=== PATIENT | male | born 1960 | race Caucasian/White ===

== ENCOUNTER 2016-11-28 10:28 | Emergency (ER) | payer OTHER ==
[~2016-11-28] VITALS: Ht 175.3 cm; Wt 96.6 kg
[~2016-11-28 10:28] MED LIST: GLIP-26 PO; INSU100V8 SQ; LISI-334 PO; PRAV40TA2 PO; SERT50TA8 PO; SITA1TAB11 PO
[2016-11-28 10:40] VITALS: BP 116/66
--- NOTE | 2016-11-28 11:02 | PHYS DOC ---
General Chief Complaint: NAUSEA/VOMITING/DIARRHEA Stated Complaint: NAUSEA/VOMITING Time Seen by MD: 10:29 Source: patient, old records Exam Limitations: no limitations Problems: History of Present Illness Initial Comments Patient is a 56-year-old male who comes to the ED complaining of GI symptoms. Patient states that for the past 3-4 weeks he's had intermittent bouts of diarrhea. Diarrhea is described as loose watery stools, cramping prior to bowel movement with relief upon bowel movement. Increased gas production, feeling of bloating no focal abdominal pain fever chills sweats no chest pain and trouble breathing. He says this morning he had several episodes of emesis he states are due to feeling so badly with the diarrhea. He denies bad food exposure or recent travel overseas he is visiting here locally for business as he is from [place]. He is diabetic he states he's been consistent with diet and meds and prior to coming to the ED his glucose was 82. In the emergency department he denies any complaints he has no nausea or vomiting he denies any abdominal discomfort. He feels symptoms are related to diverticulitis, he's had several exacerbations in the past in addition to recent colonoscopy confirming the diagnosis. He denies seeing any blood in his stools or emesis. Timing/Duration: changing over time, other Severity: moderate Modifying Factors: worse with eating Associated Symptoms: nausea/vomiting, other Allergies: Coded Allergies: prochlorperazine edisylate (Verified Allergy, Swelling, 06/18/13) prochlorperazine maleate (Verified Allergy, Swelling, 06/18/13) Past Medical History Medical History: other (depression, diabetes, diverticulitis, hyperlipidemia, hypertension) Surgical History: noncontributory Social History Smoker: non-smoker Alcohol: none Drugs: none Review of Systems Constitutional: denies chills, denies diaphoresis, denies fever, denies malaise , denies weakness Cardiovascular: denies chest pain, denies edema, denies palpitations, denies syncope Gastrointestinal: see HPI Genitourinary: denies dysuria, denies frequency, denies hematuria Musculoskeletal: denies back pain, denies joint swelling, denies neck pain Psychiatric/Neurological: denies headache, denies numbness, denies paresthesia , denies tingling, denies weakness Physical Exam General Appearance: WD/WN, no apparent distress Eyes: bilateral eye normal inspection, bilateral eye PERRL, bilateral eye EOMI Ear, Nose, Throat: hearing grossly normal, normal ENT inspection, normal pharynx Neck: full range of motion, supple Respiratory: normal breath sounds, no respiratory distress Cardiovascular: normal peripheral pulses, regular rate, rhythm Gastrointestinal: soft (nondistended bowel sounds normal no focal tenderness. 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 The patient would rather forego testing for now with them. Treatment for diverticulitis. He says he will return if symptoms fail to improve or worsen and expresses agreement and understanding with the treatment plan. Departure Time of Disposition: 10:58 Disposition: 01 HOME, SELF-CARE Diagnosis: abdominal discomfort, h/o diverticulitis, DM Condition: STABLE Patient Instructions: Diverticulitis, [id number] Additional Instructions: As discussed you have chosen to leave the emergency department without evaluation in favor of conservative treatment. Return to the ED if you change your mind and want us to work your symptoms up further or if symptoms change. Please review the patient education handout given to you by the ED staff. Aggressive hydration with Gatorade or water. Clear liquids today, increase slowly to bland diet tomorrow as tolerated. [id number] probiotics or cultured dairy (danimals, gogurt) to replace normal gut judy and aid in symptom control. Prescriptions: Cipro, Flagyl, Zofran ODT 4 mg, Fountain 5 mg quantity 20 Take medications with food to avoid nausea and vomiting. No alcohol while taking Flagyl to avoid adverse GI symptoms. Follow-up with her doctor in 5-7 days for recheck. Return to the ED with new or changing symptoms YOLIE PENNINGTON DO Nov 28, 2016 11:02
[2016-11-28] MEDS ORDERED: CIPROFLOXACIN HCL 500 MG TABLET PO ONE (11:15)
[2016-11-28] MEDS ORDERED: metroNIDAZOLE 500 MG TABLET PO ONE (11:15)
[2016-11-28] MEDS ORDERED: ONDANSETRON ODT 4 MG TAB.RAPDIS PO ONE (11:15)
== END 2016-11-28 11:16 | disposition home or self-care (01) ==
LOC: ER 10:28
DX: R10.9 Unspecified abdominal pain (principal); R19.7 Diarrhea, unspecified; R11.2 Nausea with vomiting, unspecified; K57.92 Diverticulitis of intestine, part unspecified, without perforation or abscess without bleeding; E11.9 Type 2 diabetes mellitus without complications; E78.5 Hyperlipidemia, unspecified; I10 Essential (primary) hypertension; Z88.8 Allergy status to other drugs, medicaments and biological substances
CPT/HCPCS: 99284; Q0162

== ENCOUNTER 2016-12-04 18:18 | Inpatient (IN) | payer OTHER ==
[~2016-12-04] VITALS: Ht 175.3 cm; Wt 92.6 kg
--- NOTE | 2016-12-04 18:36 | ED.ADGEN ---
Past History Past Medical History: Depression, Diverticulitis, Diabetes, High Cholesterol, Hypertension Past Surgical History: Other Smoking: Non-smoker Alcohol Use: None Drug Use: None Adult General HPI HPI Patient is a [56] year old [male] who presents with 7 day hx of n//v/d. he was seen 1 week ago and treated for diverticulitis. he has had diverticulitis before in 1999. he had colonoscopy then that showed minimal diverticula. he has been taking cipro and flagyl. he is still nauseated with abdominal pain. diarrhea has improved. no fever. no bloody stools. he is diabetic and has been reducing his insulin since he has not been eating as much Review of Systems Review of Systems Constitutional: Denies fever or chills [] Eyes: Denies change in visual acuity, redness, or eye pain [] HENT: Denies nasal congestion or sore throat [] Respiratory: Denies cough or shortness of breath [] Cardiovascular: No additional information not addressed in HPI [] GI: periumbilical abdominal pain, nausea, vomiting, No bloody stools, improving diarrhea [] : Denies dysuria or hematuria [] Musculoskeletal: Denies back pain or joint pain [] Integument: Denies rash or skin lesions [] Neurologic: Denies headache, focal weakness or sensory changes [] Endocrine: Denies polyuria or polydipsia [] Current Medications Current Medications Current Medications Medications (Trade) Dose Ordered Sig/Cam Start Time Stop Time Status Last Admin Dose Admin Iohexol (Omnipaque 300 Mg/ml) 75 ml 1X ONCE 12/04/16 19:30 12/04/16 19:31 DC 12/04/16 20:14 75 ML Ondansetron HCl (Zofran) 4 mg 1X ONCE 12/04/16 20:45 12/04/16 20:46 DC 12/04/16 20:45 4 MG Sodium Chloride 1,000 ml @ 1,000 mls/hr 1X ONCE 12/04/16 19:00 12/04/16 19:59 DC 12/04/16 19:00 1,000 MLS/HR Allergies Allergies Allergies Coded Allergies Type Severity Reaction Last Updated Verified prochlorperazine edisylate Allergy Swelling 06/18/13 Yes prochlorperazine maleate Allergy Swelling 06/18/13 Yes Physical Exam Physical Exam Constitutional: Well developed, well nourished, no acute distress, non-toxic appearance. [] HENT: Normocephalic, atraumatic, bilateral external ears normal, oropharynx moist, no oral exudates, nose normal. [] Eyes: PERRLA, EOMI, conjunctiva normal, no discharge. [] Neck: Normal range of motion, no tenderness, supple, no stridor. [] Cardiovascular:Heart rate regular rhythm, no murmur [] Lungs & Thorax: Bilateral breath sounds clear to auscultation [] Abdomen: Bowel sounds normal, soft, tender periumbilical. minimal right and left lower quadrant. no masses, no pulsatile masses. [] Skin: Warm, dry, no erythema, no rash. [] Back: No tenderness, no CVA tenderness. [] Extremities: No tenderness, no cyanosis, no clubbing, ROM intact, no edema. [] Neurologic: Alert and oriented X 3, normal motor function, normal sensory function, no focal deficits noted. [] Psychologic: Affect normal, judgement normal, mood normal. [] Current Patient Data Vital Signs Vital Signs Date Time Temp Pulse Resp B/P (MAP) Pulse Ox O2 Delivery O2 Flow Rate FiO2 12/04/16 20:28 78 20 134/71 (92) 97 Room Air 12/04/16 18:30 98.2 Lab Results Laboratory Tests Test 12/04/16 19:18 12/04/16 20:40 White Blood Count 12.0 x10^3/uL (4.0-11.0) H Red Blood Count 4.44 x10^6/uL (4.30-5.70) Hemoglobin 12.8 g/dL (13.0-17.5) L Hematocrit 38.2 % (39.0-53.0) L Mean Corpuscular Volume 86 fL (79-100) Mean Corpuscular Hemoglobin 29 pg (25-35) Mean Corpuscular Hemoglobin Concent 34 g/dL (31-37) Red Cell Distribution Width 14.0 % (11.5-14.5) Platelet Count 203 x10^3/uL (140-400) Neutrophils (%) (Auto) 77 % (31-73) H Lymphocytes (%) (Auto) 16 % (24-48) L Monocytes (%) (Auto) 6 % (0-9) Eosinophils (%) (Auto) 1 % (0-3) Basophils (%) (Auto) 0 % (0-3) Neutrophils # (Auto) 9.2 x10^3uL (1.8-7.7) H Lymphocytes # (Auto) 1.9 x10^3/uL (1.0-4.8) Monocytes # (Auto) 0.7 x10^3/uL (0.0-1.1) Eosinophils # (Auto) 0.2 x10^3/uL (0.0-0.7) Basophils # (Auto) 0.0 x10^3/uL (0.0-0.2) Sodium Level 135 mmol/L (136-145) L Potassium Level 5.8 mmol/L (3.5-5.1) H 5.7 mmol/L (3.5-5.1) H Chloride Level 106 mmol/L (98-107) Carbon Dioxide Level 23 mmol/L (21-32) Anion Gap 6 (6-14) Blood Urea Nitrogen 36 mg/dL (8-26) H Creatinine 1.3 mg/dL (0.7-1.3) Estimated GFR (Cockcroft-Gault) 56.7 BUN/Creatinine Ratio 28 (6-20) H Glucose Level 202 mg/dL (70-99) H Lactic Acid Level 0.8 mmol/L (0.4-2.0) Calcium Level 8.9 mg/dL (8.5-10.1) Total Bilirubin 0.4 mg/dL (0.2-1.0) Aspartate Amino Transferase (AST) 42 U/L (15-37) H Alanine Aminotransferase (ALT) 54 U/L (16-63) Alkaline Phosphatase 103 U/L (46-116) Total Protein 7.6 g/dL (6.4-8.2) Albumin 3.7 g/dL (3.4-5.0) Albumin/Globulin Ratio 0.9 (1.0-1.7) L Lipase 184 U/L (73-393) EKG EKG HR 76. time 2133. no peaked Twaves. no stemi. normal QRS[] Radiology/Procedures Radiology/Procedures [] Course & Med Decision Making Course & Med Decision Making Pertinent Labs and Imaging studies reviewed. (See chart for details) pt was found to be hyperkalemic. meds given. he also has esophagitis on CT so protonix given. CT showed colitis, Dr. Gibbs requested zosyn. Dr. Gibbs accepted admission Final Impression Final Impression colitis, hyperkalemia, IDDM[] Problems: Dragon Disclaimer Dragon Disclaimer This electronic medical record was generated, in whole or in part, using a voice recognition dictation system. TIFFANIE PRETTY MD Dec 04, 2016 18:36
[2016-12-04] MEDS ORDERED: IV NORMAL SALINE 1,000ML 1,000 ML IV ONE ×2 (19:00→22:00)
[2016-12-04] MEDS ORDERED: ONDANSETRON PF 4 MG/2 ML VIAL. IV ONE ×2 (19:00→20:45)
[2016-12-04] MEDS ORDERED: IOHEXOL 300 MG/ML 75 ML VIAL. IV ONE (19:30)
[2016-12-04 19:40] LABS: BASO % 0 % (0-3); EOS # 0.2 x10^3/uL (0.0-0.7); EOS % 1 % (0-3); HEMATOCRIT 38.2 % (39.0-53.0); HEMOGLOBIN 12.8 g/dL (13.0-17.5); LYMPH # 1.9 x10^3/uL (1.0-4.8); LYMPH % 16 % (24-48); MEAN CORPUSCULAR HEMOGLOBIN 29 pg (25-35); MEAN CORPUSCULAR HGB CONC 34 g/dL (31-37); MEAN CORPUSCULAR VOLUME 86 fL (79-100); MONO # 0.7 x10^3/uL (0.0-1.1); MONO % 6 % (0-9); NEUT # 9.2 x10^3uL (1.8-7.7); NEUT % 77 % (31-73); PLATELET COUNT 203 x10^3/uL (140-400); RED BLOOD COUNT 4.44 x10^6/uL (4.30-5.70)
[2016-12-04 19:57] LABS: ALBUMIN 3.7 g/dL (3.4-5.0); ALBUMIN/GLOBULIN RATIO 0.9 (1.0-1.7); CALCIUM 8.9 mg/dL (8.5-10.1); CREATININE 1.3 mg/dL (0.7-1.3); GFR 56.7; POTASSIUM 5.8 mmol/L (3.5-5.1); TOTAL BILIRUBIN 0.4 mg/dL (0.2-1.0); TOTAL PROTEIN 7.6 g/dL (6.4-8.2)
--- NOTE | 2016-12-04 20:49 | RAD ---
CT abdomen and pelvis with contrast TECHNIQUE: Helical CT imaging of the abdomen and pelvis were acquired with 75 mL Omnipaque 300 intravenous contrast. HISTORY: Ground-level abdominal pain, nausea and vomiting, leukocytosis. Abdomen findings: Moderate L2 vertebral compression fracture and mild L1 vertebral body compression fracture features of which are typical of chronic fractures. Distal esophageal wall appears mildly thickened. Liver, gallbladder, pancreas, spleen, adrenal glands and left kidney unremarkable. Subcentimeter indeterminate hypodense lesion right renal lower pole axial image 39. No abdominal fluid or adenopathy. The cecum and ascending colon is mildly thick walled. The appendix is normal without evidence of appendicitis diameter 5 mm without inflammation. No bowel obstruction. No abdominal fluid or adenopathy. Lung bases unremarkable. Pelvis findings: Bladder, prostate, rectum and bones are unremarkable. The sigmoid colon appears mildly thick-walled and there is mild pericolonic stranding. The left transverse colon and descending colon are collapsed and contains a thick-walled as well. IMPRESSION: 1. Probable low-grade colitis with colonic luminal collapse and wall thickening and subtle areas of pericolic edema. 2. The appendix is negative. 3. Chronic lumbar compression fractures. 4. Mild distal esophageal wall thickening could be indicative of esophagitis or neoplasia. Exposure: One or more of the following individualized dose reduction techniques were utilized for this examination: 1. Automated exposure control 2. Adjustment of the mA and/or kV according to patient size 3. Use of iterative reconstruction technique Electronically signed by: Mikhail Arriola MD (12/04/2016 8:45 PM)
[2016-12-04] MEDS ORDERED: INSULIN REGULAR 100 UNIT/ML 10ML VIAL. IV ONE (22:00)
[2016-12-04] MEDS ORDERED: DEXTROSE 50% 25 GM / 50ML DISP.SYRIN. IV PRN (22:00)
[2016-12-04] MEDS ORDERED: SODIUM POLYSTYRENE SULFONATE 15 GM/60 ML ORAL.SUSP. PO ONE (22:00)
[2016-12-04] MEDS ORDERED: SODIUM BICARB ADULT 8.4% 50 MEQ/50 ML DISP.SYRIN. IV ONE (22:00)
[2016-12-04] MEDS ORDERED: DEXTROSE 50% 25 GM / 50ML DISP.SYRIN. IV ONE (22:00)
[2016-12-04] MEDS ORDERED: CALCIUM GLUCONATE 1,000 MG/10 ML VIAL IV ONE ×3 (22:00)
[2016-12-04] MEDS: IV NORMAL SALINE 1,000ML 1,000 ML IV SCH (22:18)
[2016-12-04] MEDS ORDERED: PANTOPRAZOLE 40 MG TABLET. PO ONE (22:30)
[2016-12-04 22:50] VITALS: BP 145/72
[2016-12-04] MEDS ORDERED: MELO7.5T29 PO (22:51)
--- NOTE | 2016-12-04 23:36 | NUR ---
The patient, LIANNA SANCHEZ, 56 y/o, M admitted by VIVIAN SIMON MD, was given written information regarding hospital policies, unit procedures and contact persons. Patient was recently treated for diverticulitis, he has been having a lot of diarrhea and abdominal pain since then. He is currently living in [place] but has been up here visiting his family. Valuables were checked and left with patient.
[2016-12-04] MEDS ORDERED: PIPERACILLIN/TAZOBACTAM 3.375 GM VIAL IV ONE (23:43)
[2016-12-04] MEDS ORDERED: IV NORMAL SALINE 50ML 50 ML ONE (23:44)
[2016-12-04] MEDS: PIPERACILLIN/TAZOBACTAM 3.375 GM in IV NORMAL SALINE 50ML 50 ML IV SCH (23:52)
[2016-12-05] MEDS: IV NORMAL SALINE 1,000ML 1,000 ML IV SCH ×2 (04:31→13:10)
[2016-12-05] MEDS ORDERED: PIPERACILLIN/TAZOBACTAM 3.375 GM VIAL IV ONE (05:06)
[2016-12-05] MEDS ORDERED: IV NORMAL SALINE 50ML 50 ML ONE (05:06)
[2016-12-05] MEDS: PIPERACILLIN/TAZOBACTAM 3.375 GM in IV NORMAL SALINE 50ML 50 ML IV SCH ×3 (05:13→18:45)
[2016-12-05] MEDS ORDERED: CONTRAST GIVEN MC PRN (05:45)
[2016-12-05 05:56] LABS: BASO # 0.1 x10^3/uL (0.0-0.2); BASO % 1 % (0-3); EOS # 0.2 x10^3/uL (0.0-0.7); EOS % 2 % (0-3); HEMATOCRIT 33.7 % (39.0-53.0); HEMOGLOBIN 11.5 g/dL (13.0-17.5); LYMPH # 2.4 x10^3/uL (1.0-4.8); LYMPH % 25 % (24-48); MEAN CORPUSCULAR HEMOGLOBIN 30 pg (25-35); MEAN CORPUSCULAR HGB CONC 34 g/dL (31-37); MEAN CORPUSCULAR VOLUME 87 fL (79-100); MONO # 0.6 x10^3/uL (0.0-1.1); MONO % 6 % (0-9); NEUT # 6.6 x10^3uL (1.8-7.7); NEUT % 67 % (31-73); PLATELET COUNT 181 x10^3/uL (140-400); RED BLOOD COUNT 3.89 x10^6/uL (4.30-5.70); RED CELL DISTRIBUTION WIDTH 13.9 % (11.5-14.5); WHITE BLOOD COUNT 9.8 x10^3/uL (4.0-11.0)
[2016-12-05 06:05] LABS: CALCIUM 8.3 mg/dL (8.5-10.1); CREATININE 1.2 mg/dL (0.7-1.3); GFR 62.2
[2016-12-05 06:38] VITALS: BP 143/72
[2016-12-05 06:39] VITALS: BP 143/72
--- NOTE | 2016-12-05 06:53 | EKG ---
[address] [address] Test Date: 2016-12-04 Test Time: 21:33:46 Pat Name: LIANNA SANCHEZ Department: Room: 115 A Gender: M Setter Up: ROHIT : 1960 Requested By: TIFFANIE PRETTY Order Number: [id number] Reading MD: Catrachito Donahue Measurements Intervals Reader Rate: 76 P: 45 NM: 180 QRS: 15 QRSD: 78 T: 48 QT: 350 QTc: 393 Interpretive Statements SINUS RHYTHM Electronically Signed On 12-06-2016 9:17:06 CDT by Catrachito Donahue
[2016-12-05] MEDS: MORPHINE SULFATE 4 MG/ML DISP.SYRIN. IV PRN ×3 (07:37→21:26)
[2016-12-05] MEDS: ONDANSETRON PF 4 MG/2 ML VIAL. IV PRN ×2 (07:37→13:10)
[2016-12-05] MEDS ORDERED: metFORMIN 500 MG TABLET PO SCH (08:00)
[2016-12-05] MEDS: LINAGLIPTIN 5 MG TABLET PO SCH (08:16)
[2016-12-05] MEDS: LISINOPRIL 20 MG TABLET PO SCH (08:16)
[2016-12-05] MEDS: PANTOPRAZOLE IV PUSH 40 MG VIAL. IVP SCH (11:40)
[2016-12-05 11:42] VITALS: BP 115/61
[2016-12-05] MEDS: SUCRALFATE 1 GM/10 ML ORAL.SUSP. PO SCH ×3 (11:46→21:04)
--- NOTE | 2016-12-05 12:59 | ACF ---
Admission Criteria Forms GASTROENTEROLOGY [facility]G Clinical Indications for Admission to Inpatient Care (Place 'X' for any and all applicable criteria): Hospital admission is needed for appropriate care of the patient because of ANY ONE of the following: [ ]I. Hemoperitoneum(7) [ ]II. Ascites requiring acute treatment indicated by ANY ONE of the following( 8)(9): [ ]a) Hemodynamic instability remaining after emergency or observation level care (as appropriate) [ ]b) Peritoneal signs present (eg, abdominal rigidity, rebound tenderness, absent bowel sounds) [ ]c) Tachypnea, Hypoxemia, or other respiratory symptoms remain after emergency or observation level care (as appropriate) [ ]d) Suspected infected ascites as indicated by ANY ONE of the following: [ ]i) Temperature greater than 100 degrees F (37.8 degrees C) [ ]ii) Abdominal pain or tenderness not relieved by paracentesis [ ]iii) Systemic signs of infection (eg, elevated WBC count, fever) [ ]iv) Ascitic fluid analysis consistent with infection ( eg, elevated WBC count): [ ]v) Vital sign abnormality [ ]III. Suspected acute intra-abdominal process indicated by ANY ONE of the following(1)(2)(3)(4)(5): [ ]a) Hemodynamic instability [ ]b) Peritoneal signs present (eg, abdominal rigidity, rebound tenderness, absent bowel sounds) [ ]c) Bowel obstruction suspected (eg, severe vomiting, abdominal distension) [ ]d) Suspected mesenteric ischemia or ischemic colitis(6) [ ]e) Other signs or symptoms of acute abdominal disease (eg, severe pain, free air): [ ]IV. Severe liver disease indicated by ANY ONE of the following(8)(9)(10)(11)( 12)(13)(14): [ ]a) Acute hepatitis (eg, transaminase level greater than 1000 IU/L) [ ]b) Acute elevation of prothrombin time to more than 50% above normal or INR greater than 1.5 [ ]c) Bilirubin greater than 20 mg/dL (342 micromoles/L) (15) [ ]d) New-onset or worsening hepatic encephalopathy [ ]e) Acute liver necrosis [ ]f) Vomiting or dehydration that is severe of persistent [ ]g) Hemodynamic instability due to liver disease [ ]h) Acute renal failure [ ]i) Hepatic abscess [ ]j) Dehydration that is severe or persistent [ ]k) Hepatic hydrothorax(21) [ ]l) Other indications of severe liver disease (eg, persistent fever , ingestion of hepatotoxin) [X]V. Severe diarrhea indicated by ANY ONE of the following(17)(18)(19)(20)(21)( 22)(23): [ ]a) High fever or other high-risk infection situation [ ]b) Intractable bloody diarrhea (eg, more than 6 bloody stools per day) [ ]c) Suspected Clostridium difficile-associated diarrhea(24) [ ]d) Change in mental status that persists after emergency or observation level care (as appropriate) [ ]e) Severe dehydration (eg, greater than 9% loss of body weight in children) [ ]f) Inability to maintain hydration [ ]g) Peritoneal signs present (eg, abdominal rigidity, rebound tenderness, absent bowel sounds) [ ]h) Abdominal ischemia suspected(6) [ ]i) Hemodynamic instability that persists after emergency or observation level care (as appropriate) [X]j) Severe electrolyte abnormalities requiring inpatient care [ ]k) Acute renal failure [ ]. Suspected toxic megacolon(5)(6) [ ]VII.Severe dysphagia indicated by ANY ONE of the following(25)(26): [ ]a) Suspected esophageal perforation or fistula(27) [ ]b) Suspected cause that requires inpatient care (eg, caustic ingestion, severe esophagitis) (28) [ ]c) Severe dehydration (eg, greater than 9% loss of body weight in children) [ ]d) Inability to manage secretions or maintain hydration [ ]e) Hemodynamic instability that persists after emergency or observation level care (as appropriate) [ ]f) Severe electrolyte abnormalities requiring inpatient care [ ]g) Acute renal failure [ ]VIII.Vomiting and ANY ONE of the following (29)(30)(31)(32): [ ]a) High fever or other high-risk infection situation [ ]b) Change in mental status that persists after emergency or observation level care (as appropriate) [ ]c) Severe dehydration (e.g., greater than 9% loss of body weight in children) [ ]d) Peritoneal signs present (e.g., abdominal rigidity, rebound tenderness, absent bowel sounds) [ ]e) Hemodynamic instability that persists after emergency or observation level care (as appropriate) [ ]f) Severe electrolyte abnormalities requiring inpatient care [ ]g) Acute renal failure [ ]h) Bowel obstruction suspected (e.g., severe vomiting, abdominal distension) [ ]i) Vomiting that is severe or persistent after medical treatment [ ]IX. Significant dehydration indicated by ANY ONE of the following(23)(24)(25) [ ]a) Clinical findings of severe dehydration indicated by ANY ONE of the following: [ ]i) Acute loss of weight from baseline (5% of body weight in adults, 9% in pediatric patients) [ ]ii) Hemodynamic instability [ ]iii) Acute renal failure [ ]iv) Serum sodium greater than 150 mEq/L (mmol/L) [ ]b) Dehydration that is persistent indicated by ALL of the following: [ ]i) Oral rehydration therapy not tolerated or insufficient to adequately correct dehydration [ ]ii) Appropriate intravenous treatment (eg, fluids) does not readily correct dehydration hours of (ie, after 12 to 24 of treatment) [ ]X. Gastroparesis and ANY ONE of the following(37)(38)(39): [ ]a) Dehydration that is severe or persistent [ ]b) Severe electrolyte abnormalities requiring inpatient care [ ]c) Acute renal failure [ ]d) Vomiting that is severe or persistent [ ]XI. Complications of transplanted liver indicated by ANY ONE of the following (40)(41): [ ]a) Acute graft rejection requiring inpatient management (eg, intravenous immunosuppression)(42) [ ]b) Failure of transplanted liver as indicated by ANY ONE of the following: [ ]i) Acute hepatitis (eg, transaminase level greater than 1000 International Units per liter (IU/L)) [ ]ii) Acute elevation of prothrombin time to more than 50% above baseline or INR greater than 1.5 [ ]iii) Bilirubin greater than 20 mg/dL (342 micromoles/L) [ ]iv) New-onset or worsening hepatic encephalopathy [ ]v) Acute elevation of serum ammonia level (eg, greater than 210 mcg/dL (150 micromoles/L)) [ ]vi) Acute liver necrosis [ ]c) Infection requiring inpatient management (eg, Hemodynamic instability, need for intravenous antimicrobial treatment)(43)(44)(45)(46)(47)(48)(49)(50) [ ]d) Other complication of transplanted liver (eg, thrombosis, autoimmune hepatitis, variceal bleeding) requiring inpatient management(51)(52) [ ]XII Complications of transplanted pancreas indicated by ANY ONE of the following(53): [ ]a) Acute graft rejection requiring inpatient management (eg, intravenous immunosuppression)(42)(54) [ ]b) Failure of transplanted pancreas as indicated by ANY ONE of the following: [ ]i) Serum amylase greater than 3 times the upper limit of normal or baseline [ ]ii) Serum lipase greater than 3 times the upper limit of normal or baseline [ ]iii) Imaging findings consistent with pancreatic inflammation or necrosis [ ]c) Infection requiring inpatient management (eg, Hemodynamic instability, need for intravenous antimicrobial treatment)(43)(44)(45)(46)(47)(48)(49)(50) [ ]d) Other complication of transplanted liver (eg, thrombosis, autoimmune hepatitis, variceal bleeding) requiring inpatient management(51)(52) [ ]X. Gastroenterology condition and ALL of the following: [ ]a) Symptom or finding for which emergency and observation care have failed or are not considered appropriate (Also use General Criteria: Observation Care as appropriate) [ ]b) Presence of ANY ONE of the following: [ ]i) A General Admission Criteria [ ]ii) A Pediatric General Admission Criteria. The original [facility] [employer] content created by [facility] has been revised. The portions of the content which have been revised are identified through the use of italic text or in bold,and [facility] has neither reviewed nor approved the modified material. All other unmodified content is copyright [facility]. Please see references footnoted in the original [facility] edition 2016 Admission Criteria Met?: Yes JUNE LEONARD Dec 05, 2016 12:59
[2016-12-05] MEDS: IV 1/2 NORMAL SALINE 1,000 ML IV SCH (14:00)
[2016-12-05 15:18] VITALS: BP 126/72
[2016-12-05] MEDS ORDERED: PIPERACILLIN/TAZOBACTAM 3.375 GM in IV NORMAL SALINE 50ML 50 ML IV SCH (18:00)
--- NOTE | 2016-12-05 18:25 | HP ---
ADMIT DATE: 12/05/2016 REASON FOR ADMISSION: Nausea, vomiting, diarrhea, and abdominal pain. HISTORY OF PRESENT ILLNESS: This is a 56-year-old retired , who has been working up [employer]. He normally lives in [place]; however, he is here on TDY. He reports overall history of 5-6 weeks on and off diarrhea with some abdominal pain. A week ago Monday, he had nausea, vomiting, and diarrhea, presented to the Emergency Room. He was started on Cipro and Flagyl. He reports his diarrhea as voluminous, but not as much coming up to today, but he has still been having abdominal pain in spite of the two antibiotics, also mid epigastric pain as well as some diarrhea. His C. diff is pending. PAST MEDICAL HISTORY: The patient had diverticulitis in 1999, which was severe. He had a colonoscopy at that time, which was evidently normal. He also has type 2 diabetes, hypertension, right torn rotator cuff, and hyperlipidemia. MEDICATIONS: Reviewed with him. He has had a decrease in his Lantus because of improvement in his blood sugars. MEDICATIONS: He takes lisinopril, atorvastatin, and meloxicam. He has been taking something for his stomach on and off. SOCIAL HISTORY: The patient is retired . He has four children. He is . No tobacco or alcohol at all. FAMILY HISTORY: Mother has recently in elderly age. ALLERGIES: PROCHLORPERAZINE. REVIEW OF SYSTEMS: The patient states she has lost 10 pounds, decreased appetite. Positive for abdominal pain. Positive chronic right shoulder pain. No urinary symptoms. Positive diarrhea. No fever or shortness of breath. OBJECTIVE: VITAL SIGNS: Blood pressure 143/72, pulse 72, temperature 97.6, respiratory rate is 18, pulse ox is 97% on room air, height 69 inches, weight 204.12 pounds. GENERAL: A 56-year-old in no acute distress. HEENT: His hearing is normal. His eyes are clear. His nose is patent. Throat is clear, tongue is moist. NECK: Supple. LUNGS: Clear to auscultation. CARDIOVASCULAR: Regular rhythm and rate. ABDOMEN: Mildly distended. Bowel sounds are positive. Mildly diffusely tender in the midepigastric area, also across the lower quadrants. EXTREMITIES: Without edema. NEUROLOGIC: She is intact. LABORATORY DATA: His initial white count is 12.0, it was 9.8 this morning. Hemoglobin 11.5, hematocrit 33.7. Chemistry: Initial potassium was 5.8, it is now 5.0, glucose within acceptable limits. CT of the abdomen and pelvis show a low-grade colitis, chronic luminal collapse and wall thickening. Negative for appendicitis, chronic lumbar compression fractures, and mild distal esophageal wall thickening, possibly esophagitis or neoplasia. ASSESSMENT: 1. History of diverticulitis. 2. Colitis, status post one week treatment of Cipro and Flagyl. 3. Esophagitis. 4. Leukocytosis. 5. Nausea, vomiting, and diarrhea. 6. Dehydration. 7. Hyperkalemia, which is now resolved after getting calcium gluconate and sodium bicarbonate. PLAN: IV fluids, switched to Zosyn. Monitor his blood sugars. Dr. Franklin reviewed his CT, recommends that an EGD and colonoscopy in six weeks. Continue antibiotics for now and Clostridium difficile is pending and treat his pain. RAINER GALLAGHER DO DR: TEENA/becky JOB#: [id number] / [id number]
[2016-12-05 19:00] VITALS: BP 119/68
[2016-12-05] MEDS ORDERED: INSULIN DETEMIR 300 UNITS/3 ML INSULN.PEN. SQ SCH (21:00)
[2016-12-05] MEDS ORDERED: MELOXICAM 7.5 MG TABLET PO SCH (21:00)
[2016-12-05] MEDS: ATORVASTATIN CALCIUM 10 MG TABLET. PO SCH (21:04)
[2016-12-05] MEDS: SERTRALINE 50 MG TABLET. PO SCH (21:04)
[2016-12-06 00:15] VITALS: BP 123/66
[2016-12-06] MEDS: IV 1/2 NORMAL SALINE 1,000 ML IV SCH ×2 (00:29→11:36)
[2016-12-06] MEDS: PIPERACILLIN/TAZOBACTAM 3.375 GM in IV NORMAL SALINE 50ML 50 ML IV SCH ×4 (00:29→17:29)
[2016-12-06] MEDS: ONDANSETRON PF 4 MG/2 ML VIAL. IV PRN (00:45)
[2016-12-06] MEDS ORDERED: ONDANSETRON PF 4 MG/2 ML VIAL. ONE (00:45)
[2016-12-06 05:58] LABS: BASO % 1 % (0-3); EOS # 0.2 x10^3/uL (0.0-0.7); EOS % 3 % (0-3); HEMATOCRIT 29.8 % (39.0-53.0); HEMOGLOBIN 10.1 g/dL (13.0-17.5); LYMPH # 2.5 x10^3/uL (1.0-4.8); LYMPH % 32 % (24-48); MEAN CORPUSCULAR HEMOGLOBIN 29 pg (25-35); MEAN CORPUSCULAR HGB CONC 34 g/dL (31-37); MEAN CORPUSCULAR VOLUME 87 fL (79-100); MONO # 0.5 x10^3/uL (0.0-1.1); MONO % 6 % (0-9); NEUT # 4.7 x10^3uL (1.8-7.7); NEUT % 59 % (31-73); PLATELET COUNT 144 x10^3/uL (140-400); RED BLOOD COUNT 3.43 x10^6/uL (4.30-5.70); RED CELL DISTRIBUTION WIDTH 13.9 % (11.5-14.5)
[2016-12-06 06:00] VITALS: BP 113/64
[2016-12-06 06:10] LABS: ALBUMIN 2.8 g/dL (3.4-5.0); ALBUMIN/GLOBULIN RATIO 0.9 (1.0-1.7); CALCIUM 7.3 mg/dL (8.5-10.1); CREATININE 1.1 mg/dL (0.7-1.3); GFR 68.8; MAGNESIUM 1.6 mg/dL (1.8-2.4); POTASSIUM 4.4 mmol/L (3.5-5.1); TOTAL BILIRUBIN 0.2 mg/dL (0.2-1.0); TOTAL PROTEIN 5.8 g/dL (6.4-8.2)
[2016-12-06] MEDS: PANTOPRAZOLE IV PUSH 40 MG VIAL. IVP SCH (06:26)
[2016-12-06] MEDS: LINAGLIPTIN 5 MG TABLET PO SCH (07:45)
[2016-12-06] MEDS: LISINOPRIL 20 MG TABLET PO SCH (07:45)
[2016-12-06] MEDS: SUCRALFATE 1 GM/10 ML ORAL.SUSP. PO SCH ×4 (07:45→21:04)
[2016-12-06] MEDS ORDERED: MAGNESIUM SULFATE 2GM 50 ML IV ONE (08:00)
--- NOTE | 2016-12-06 08:03 | NUR ---
Consult: Called into answering service for routine consult for Dr. Franklin
[2016-12-06 09:26] LABS: FECAL OB PT NEGATIVE (NEG)
[2016-12-06] MEDS ORDERED: methylPREDNISolone SOD SUCC PF 125 MG/2 ML VIAL. IV ONE (09:30)
[2016-12-06 10:25] VITALS: BP 124/74
--- NOTE | 2016-12-06 11:22 | PDOC2 ---
CONSULT Date of Admission DATE: 12/06/16 TIME: 11:15 Reason for Consult: abdominal pain diarrhea and anemia Referring Physician: Jed Chief Complaint Abdominal pain with diarrhea Source: Patient Problem List Problems Medical Problems: (1) Colitis Status: Acute (2) Hyperkalemia Status: Acute History of Present Illness 56 yo male who has had several weeks of diarrhea but recently had nausea and vomiting, with severe abdominal pain for which he came to ED. Was treated with cipro and flagyl for diverticulitis. Returned in 2 days with worse symptoms. Today he is feeling less abdominal pain with no vomiting or nausea. Still having loose stools and thought he had blood in stool today, but heme was negative. Cardiovascular: HTN Endocrine: Diabetes Past Surgical History: Other (colonoscopy 9 years ago showed diverticulosis) Family History: No Significant Smoke: No ALCOHOL: occassional Drugs: None Lives: with Family Current Medications Current Medications Sodium Chloride 1,000 ml @ 1,000 mls/hr 1X ONCE IV Last administered on 19:00; Start 12/04/16 at 19:00; Stop 12/04/16 at 19:59; Status DC Ondansetron HCl (Zofran) 4 mg 1X ONCE IV Last administered on 12/04/16 19:00 ; Start 12/04/16 at 19:00; Stop 12/04/16 at 19:01; Status DC Iohexol (Omnipaque 300 Mg/ml) 75 ml 1X ONCE IV Last administered on 12/04/16 20:14; Start 12/04/16 at 19:30; Stop 12/04/16 at 19:31; Status DC Ondansetron HCl (Zofran) 4 mg 1X ONCE IV Last administered on 12/04/16 20:45 ; Start 12/04/16 at 20:45; Stop 12/04/16 at 20:46; Status DC Dextrose 25 gm 1X ONCE IV Last administered on 12/04/16 22:22; Start at 22:00; Stop 12/04/16 at 22:01; Status DC Insulin Human Regular (NovoLIN R) 10 unit 1X ONCE IV Last administered on 12/04 22:19; Start 12/04/16 at 22:00; Stop 12/04/16 at 22:01; Status DC Sodium Bicarbonate 50 meq 1X ONCE IV Last administered on 12/04/16 22:20; Start 12/04/16 at 22:00; Stop 12/04/16 at 22:01; Status DC Calcium Gluconate 1,000 mg 1X ONCE IV Last administered on 12/04/16 22:18; Start 12/04/16 at 22:00; Stop 12/04/16 at 22:01; Status DC Calcium Gluconate 1,000 mg 1X ONCE IV Last administered on 12/04/16 22:18; Start 12/04/16 at 22:00; Stop 12/04/16 at 22:01; Status DC Calcium Gluconate 1,000 mg 1X ONCE IV Last administered on 12/04/16 22:21; Start 12/04/16 at 22:00; Stop 12/04/16 at 22:01; Status DC Sodium Polystyrene Sulfonate (Kayexalate) 15 gm 1X ONCE PO Last administered on 12/04/16 22:19; Start 12/04/16 at 22:00; Stop 12/04/16 at 22:01; Status DC Sodium Chloride 1,000 ml @ 1,000 mls/hr 1X ONCE IV Last administered on 22:21; Start 12/04/16 at 22:00; Stop 12/04/16 at 22:59; Status DC Ondansetron HCl (Zofran) 4 mg PRN Q4HRS PRN IV NAUSEA/VOMITING Last administered on 12/06/16 00:45; Start 12/04/16 at 21:45; Stop 12/05/16 at 21:44 ; Status DC Morphine Sulfate (Morphine 4mg Syringe) 4 mg PRN Q2HR PRN IV SEVERE PAIN Last administered on 12/05/16 21:26; Start 12/04/16 at 21:45; Stop 12/05/16 at 21:44 ; Status DC Sodium Chloride 1,000 ml @ 120 mls/hr Q8H20M IV Last administered on 13:10; Start 12/04/16 at 21:42; Stop 12/05/16 at 21:41; Status DC Dextrose 12.5 gm PRN Q15MIN PRN IV SEE COMMENTS; Start 12/04/16 at 22:00 Piperacillin Sod/ Tazobactam Sod 3.375 gm/Sodium Chloride 50 ml @ 100 mls/hr Q6HRS IV Last administered on 12/05/16 13:00; Start 12/05/16 at 00:00; Stop at 17:56; Status DC Pantoprazole Sodium (Protonix) 40 mg 1X ONCE PO Last administered on 22:21; Start 12/04/16 at 22:30; Stop 12/04/16 at 22:31; Status DC Glipizide (Glucotrol Er) 5 mg BIDWMEALS PO Last administered on 12/06/16 07:45 ; Start 12/05/16 at 08:00 Lisinopril (Prinivil) 40 mg DAILY PO Last administered on 12/06/16 07:45; Start 12/05/16 at 09:00 Meloxicam (Mobic) 7.5 mg HS PO ; Start 12/05/16 at 21:00; Stop 12/05/16 at 21:00 ; Status DC Sertraline HCl (Zoloft) 75 mg HS PO Last administered on 12/05/16 21:04; Start 12/05/16 at 21:00 Insulin Detemir (Levemir) 65 units QHS SQ ; Start 12/05/16 at 21:00; Status Future Hold Atorvastatin Calcium (Lipitor) 5 mg QHS PO Last administered on 12/05/16 21:04 ; Start 12/05/16 at 21:00 Metformin HCl (Glucophage) 1,000 mg BIDWMEALS PO ; Start 12/05/16 at 08:00; Status Cancel Linagliptin (Tradjenta) 5 mg DAILY PO Last administered on 12/06/16 07:45; Start 12/05/16 at 09:00 Piperacillin Sod/ Tazobactam Sod (Zosyn) 3.375 gm STK-MED ONCE IV ; Start at 23:43; Stop 12/04/16 at 23:44; Status DC Sodium Chloride 50 ml @ As Directed STK-MED ONCE .ROUTE ; Start 12/04/16 at 23: 44; Stop 12/04/16 at 23:45; Status DC Piperacillin Sod/ Tazobactam Sod (Zosyn) 3.375 gm STK-MED ONCE IV ; Start at 05:06; Stop 12/05/16 at 05:07; Status DC Sodium Chloride 50 ml @ As Directed STK-MED ONCE .ROUTE ; Start 12/05/16 at 05: 06; Stop 12/05/16 at 05:07; Status DC Info (Do NOT chart on this entry -- for MONITORING) 1 each PRN DAILY PRN MC SEE COMMENTS; Start 12/05/16 at 05:45; Stop 12/07/16 at 05:44 Metformin HCl (Glucophage) 1,000 mg BIDWMEALS PO ; Start 12/07/16 at 08:00 Sucralfate (Carafate) 1 gm QIDACHS PO Last administered on 12/06/16 07:45; Start 12/05/16 at 11:30 Pantoprazole Sodium (Protonix Vial) 40 mg DAILYAC IVP Last administered on 12/06 06:26; Start 12/05/16 at 09:30 Sodium Chloride 1,000 ml @ 100 mls/hr Q10H IV Last administered on 12/06/16 00:29; Start 12/05/16 at 14:00 Piperacillin Sod/ Tazobactam Sod 3.375 gm/Sodium Chloride 50 ml @ 100 mls/hr Q6HRS IV ; Start 12/05/16 at 18:00; Status Cancel Piperacillin Sod/ Tazobactam Sod 3.375 gm/Sodium Chloride 50 ml @ 100 mls/hr Q6HRS IV Last administered on 12/06/16 05:28; Start 12/05/16 at 18:00 Ondansetron HCl (Zofran) 4 mg STK-MED ONCE .ROUTE Last administered on 00:45; Start 12/06/16 at 00:45; Stop 12/06/16 at 00:46; Status DC Morphine Sulfate (Morphine 4mg Syringe) 4 mg PRN Q2HR PRN IV PAIN; Start at 03:00 Magnesium Sulfate 50 ml @ 25 mls/hr 1X ONCE IV Last administered on 12/06/16 08:35; Start 12/06/16 at 08:00; Stop 12/06/16 at 09:59; Status DC Methylprednisolone Sodium Succinate (SOLU-Medrol 125MG VIAL) 125 mg 1X ONCE IV ; Start 12/06/16 at 09:30; Stop 12/06/16 at 09:31; Status DC Active Scripts Active Reported Meloxicam 7.5 Mg Tablet 1 Tab PO HS Janumet 50-1,000 Mg Tablet (Sitagliptin Phos/Metformin Hcl) 1 Each Tablet 1 Each PO BID Pravastatin Sodium 40 Mg Tablet 20 Mg PO HS Lisinopril 20 Mg Tablet 40 Mg PO DAILY Sertraline Hcl 50 Mg Tablet 75 Mg PO HS Glipizide Xl (Glipizide) 10 Mg Tab.er.24 5 Mg PO BID Lantus (Insulin Glargine,Hum.rec.anlog) 100 Unit/1 Ml Vial 65 Unit SQ HS Allergies: Coded Allergies: prochlorperazine edisylate (Verified Allergy, Swelling, 06/18/13) prochlorperazine maleate (Verified Allergy, Swelling, 06/18/13) Gastrointestinal: YES: Nausea, Vomiting, Abdominal Pain, Diarrhea General: Alert, Oriented X3, Cooperative, No acute distress HEENT: Atraumatic, PERRLA, EOMI Lungs: Clear to auscultation, Normal air movement Heart: Regular rate, No murmurs Abdomen: Normal bowel sounds, Soft, No tenderness Extremities: No edema Skin: No significant lesion Neuro: Normal speech Psych/Mental Status: Mental status NL VITALS Vital Signs Date Time Temp Pulse Resp B/P (MAP) Pulse Ox O2 Delivery O2 Flow Rate FiO2 12/06/16 10:25 98.2 65 16 124/74 (91) 98 Room Air Labs Laboratory Tests Test 12/04/16 19:18 12/04/16 20:40 12/04/16 23:39 12/04/16 23:59 White Blood Count 12.0 x10^3/uL (4.0-11.0) Red Blood Count 4.44 x10^6/uL (4.30-5.70) Hemoglobin 12.8 g/dL (13.0-17.5) Hematocrit 38.2 % (39.0-53.0) Mean Corpuscular Volume 86 fL (79-100) Mean Corpuscular Hemoglobin 29 pg (25-35) Mean Corpuscular Hemoglobin Concent 34 g/dL (31-37) Red Cell Distribution Width 14.0 % (11.5-14.5) Platelet Count 203 x10^3/uL (140-400) Neutrophils (%) (Auto) 77 % (31-73) Lymphocytes (%) (Auto) 16 % (24-48) Monocytes (%) (Auto) 6 % (0-9) Eosinophils (%) (Auto) 1 % (0-3) Basophils (%) (Auto) 0 % (0-3) Neutrophils # (Auto) 9.2 x10^3uL (1.8-7.7) Lymphocytes # (Auto) 1.9 x10^3/uL (1.0-4.8) Monocytes # (Auto) 0.7 x10^3/uL (0.0-1.1) Eosinophils # (Auto) 0.2 x10^3/uL (0.0-0.7) Basophils # (Auto) 0.0 x10^3/uL (0.0-0.2) Sodium Level 135 mmol/L (136-145) Potassium Level 5.8 mmol/L (3.5-5.1) 5.7 mmol/L (3.5-5.1) Chloride Level 106 mmol/L (98-107) Carbon Dioxide Level 23 mmol/L (21-32) Anion Gap 6 (6-14) Blood Urea Nitrogen 36 mg/dL (8-26) Creatinine 1.3 mg/dL (0.7-1.3) Estimated GFR (Cockcroft-Gault) 56.7 BUN/Creatinine Ratio 28 (6-20) Glucose Level 202 mg/dL (70-99) Lactic Acid Level 0.8 mmol/L (0.4-2.0) Calcium Level 8.9 mg/dL (8.5-10.1) Total Bilirubin 0.4 mg/dL (0.2-1.0) Aspartate Amino Transf (AST/SGOT) 42 U/L (15-37) Alanine Aminotransferase (ALT/SGPT) 54 U/L (16-63) Alkaline Phosphatase 103 U/L (46-116) Total Protein 7.6 g/dL (6.4-8.2) Albumin 3.7 g/dL (3.4-5.0) Albumin/Globulin Ratio 0.9 (1.0-1.7) Lipase 184 U/L (73-393) Glucose (Fingerstick) 107 mg/dL (70-99) Clostridium difficile Toxin (PCR) Negative (Negative) Test 6/12/17 05:35 12/05/16 07:33 12/05/16 12:08 12/06/16 05:40 White Blood Count 9.8 x10^3/uL (4.0-11.0) 8.0 x10^3/uL (4.0-11.0) Red Blood Count 3.89 x10^6/uL (4.30-5.70) 3.43 x10^6/uL (4.30-5.70) Hemoglobin 11.5 g/dL (13.0-17.5) 10.1 g/dL (13.0-17.5) Hematocrit 33.7 % (39.0-53.0) 29.8 % (39.0-53.0) Mean Corpuscular Volume 87 fL (79-100) 87 fL (79-100) Mean Corpuscular Hemoglobin 30 pg (25-35) 29 pg (25-35) Mean Corpuscular Hemoglobin Concent 34 g/dL (31-37) 34 g/dL (31-37) Red Cell Distribution Width 13.9 % (11.5-14.5) 13.9 % (11.5-14.5) Platelet Count 181 x10^3/uL (140-400) 144 x10^3/uL (140-400) Neutrophils (%) (Auto) 67 % (31-73) 59 % (31-73) Lymphocytes (%) (Auto) 25 % (24-48) 32 % (24-48) Monocytes (%) (Auto) 6 % (0-9) 6 % (0-9) Eosinophils (%) (Auto) 2 % (0-3) 3 % (0-3) Basophils (%) (Auto) 1 % (0-3) 1 % (0-3) Neutrophils # (Auto) 6.6 x10^3uL (1.8-7.7) 4.7 x10^3uL (1.8-7.7) Lymphocytes # (Auto) 2.4 x10^3/uL (1.0-4.8) 2.5 x10^3/uL (1.0-4.8) Monocytes # (Auto) 0.6 x10^3/uL (0.0-1.1) 0.5 x10^3/uL (0.0-1.1) Eosinophils # (Auto) 0.2 x10^3/uL (0.0-0.7) 0.2 x10^3/uL (0.0-0.7) Basophils # (Auto) 0.1 x10^3/uL (0.0-0.2) 0.0 x10^3/uL (0.0-0.2) Sodium Level 141 mmol/L (136-145) 144 mmol/L (136-145) Potassium Level 5.0 mmol/L (3.5-5.1) 4.4 mmol/L (3.5-5.1) Chloride Level 112 mmol/L (98-107) 114 mmol/L (98-107) Carbon Dioxide Level 21 mmol/L (21-32) 23 mmol/L (21-32) Anion Gap 8 (6-14) 7 (6-14) Blood Urea Nitrogen 23 mg/dL (8-26) 12 mg/dL (8-26) Creatinine 1.2 mg/dL (0.7-1.3) 1.1 mg/dL (0.7-1.3) Estimated GFR (Cockcroft-Gault) 62.2 68.8 Glucose Level 157 mg/dL (70-99) 83 mg/dL (70-99) Calcium Level 8.3 mg/dL (8.5-10.1) 7.3 mg/dL (8.5-10.1) Glucose (Fingerstick) 125 mg/dL (70-99) 149 mg/dL (70-99) Erythrocyte Sedimentation Rate 17 (0-15) BUN/Creatinine Ratio 11 (6-20) Magnesium Level 1.6 mg/dL (1.8-2.4) Total Bilirubin 0.2 mg/dL (0.2-1.0) Aspartate Amino Transf (AST/SGOT) 24 U/L (15-37) Alanine Aminotransferase (ALT/SGPT) 34 U/L (16-63) Alkaline Phosphatase 69 U/L (46-116) Total Protein 5.8 g/dL (6.4-8.2) Albumin 2.8 g/dL (3.4-5.0) Albumin/Globulin Ratio 0.9 (1.0-1.7) Test 6/13/17 07:11 12/06/16 08:25 Glucose (Fingerstick) 81 mg/dL (70-99) Stool Occult Blood Negative (NEG) Images CT showed colitis of the colon Assessment/Plan Likely colitis possible infectious, Cdif negative, cultures pending Anemia likely dilutional, unlikely GI bleed as hemoccult negative Continue current treatment will f/u with stool cultures Colonoscopy and EGD when recovered from acute illness Problems: CATARINO MCDOWELL MD Dec 06, 2016 11:22
[2016-12-06 14:14] VITALS: BP 148/76
[2016-12-06 20:00] VITALS: BP 152/74
--- NOTE | 2016-12-06 20:12 | PN ---
DATE: SUBJECTIVE: He continues to have some mild abdominal pain. Nausea and vomiting has resolved, but was concerned that he is still having diarrhea that it may have been bloody. However, he did have some pink jello. His C. diff is negative. Overall, he is a little bit more comfortable, but anxious about getting his tests in the future. Dr. Franklin has seen him today and has recommended EGD and colonoscopy when he has recovered from this illness. OBJECTIVE: VITAL SIGNS: Blood pressure 124/74, pulse 65, respirations 16, temperature 98.2 and pulse ox 98% on room air. Intake yesterday was 4100, output was not recorded and he had 8 bowel movements but liquid was not recorded. GENERAL: His color is good though. HEENT: His tongue is moist. LUNGS: Clear. CARDIOVASCULAR: Regular rhythm and rate. ABDOMEN: Softer today, appears less distended, less tender. EXTREMITIES: Without edema. LABORATORY DATA: His white count is normal, hemoglobin 10.1, hematocrit 29.8, has decreased from 12.8 and 38.2, this may be dilutional. Sed rate is 17. Glucoses are standing good, low magnesium of 1.6, albumin 2.8. C. diff negative. ASSESSMENT: 1. Colitis, resolving. 2. Hypomagnesemia. 3. Moderate protein malnutrition. 4. Leukocytosis, which has resolved now. 5. Drop in hemoglobin, probably delusional as Hemoccults were negative. 6. Type 2 diabetes, within control. PLAN: Replace his magnesium, continue IV fluids, progress his diet and I gave him one dose of steroid today, Solu-Medrol and start planning for discharge. RAINER GALLAGHER DO DR: TEENA/becky JOB#: [id number] / [id number]
[2016-12-06] MEDS: ATORVASTATIN CALCIUM 10 MG TABLET. PO SCH (21:04)
[2016-12-06] MEDS: MORPHINE SULFATE 4 MG/ML DISP.SYRIN. IV PRN (21:05)
[2016-12-06] MEDS: SERTRALINE 50 MG TABLET. PO SCH (21:05)
[2016-12-07] VITALS: BP 144/73
[2016-12-07] MEDS: PIPERACILLIN/TAZOBACTAM 3.375 GM in IV NORMAL SALINE 50ML 50 ML IV SCH ×3 (01:10→11:25)
[2016-12-07] MEDS: IV 1/2 NORMAL SALINE 1,000 ML IV SCH (01:10)
[2016-12-07 06:00] VITALS: BP 145/76
[2016-12-07] MEDS: PANTOPRAZOLE IV PUSH 40 MG VIAL. IVP SCH (07:30)
[2016-12-07] MEDS ORDERED: metFORMIN 500 MG TABLET PO SCH (08:00)
[2016-12-07 08:32] LABS: BASO % 0 % (0-3); EOS % 0 % (0-3); HEMATOCRIT 29.9 % (39.0-53.0); HEMOGLOBIN 10.3 g/dL (13.0-17.5); LYMPH # 1.8 x10^3/uL (1.0-4.8); LYMPH % 13 % (24-48); MEAN CORPUSCULAR HEMOGLOBIN 29 pg (25-35); MEAN CORPUSCULAR HGB CONC 34 g/dL (31-37); MEAN CORPUSCULAR VOLUME 85 fL (79-100); MONO # 0.6 x10^3/uL (0.0-1.1); MONO % 5 % (0-9); NEUT # 11.5 x10^3uL (1.8-7.7); NEUT % 82 % (31-73); PLATELET COUNT 175 x10^3/uL (140-400); RED BLOOD COUNT 3.52 x10^6/uL (4.30-5.70); RED CELL DISTRIBUTION WIDTH 13.4 % (11.5-14.5)
[2016-12-07] MEDS: SUCRALFATE 1 GM/10 ML ORAL.SUSP. PO SCH ×2 (08:45→11:24)
[2016-12-07] MEDS: LINAGLIPTIN 5 MG TABLET PO SCH (08:45)
[2016-12-07] MEDS: LISINOPRIL 20 MG TABLET PO SCH (08:45)
[2016-12-07 08:50] LABS: ALBUMIN 3.1 g/dL (3.4-5.0); ALBUMIN/GLOBULIN RATIO 0.9 (1.0-1.7); CALCIUM 7.6 mg/dL (8.5-10.1); CREATININE 1.1 mg/dL (0.7-1.3); GFR 68.8; POTASSIUM 3.9 mmol/L (3.5-5.1); TOTAL BILIRUBIN 0.2 mg/dL (0.2-1.0); TOTAL PROTEIN 6.6 g/dL (6.4-8.2)
[2016-12-07 09:15] LABS: % BANDS 4 % (0-9); % LYMPHS 21 % (24-48); % MONOS 2 % (0-10); % SEGS 73 % (35-66)
[2016-12-07 09:17] LABS: PLT ESTIMATE ADEQUATE (ADEQUATE)
[2016-12-07] MEDS: MORPHINE SULFATE 4 MG/ML DISP.SYRIN. IV PRN (09:32)
[2016-12-07 11:35] VITALS: BP 146/72
[2016-12-07] MEDS ORDERED: AMOX1TAB61 PO (12:05)
[2016-12-07] MEDS ORDERED: SUCR1ORA5 PO (12:05)
[2016-12-07] MEDS ORDERED: HYDR-2758 PO (12:05)
[2016-12-07] MEDS ORDERED: PANT40TA3 PO (12:05)
--- NOTE | 2016-12-07 15:12 | NUR ---
pt verbalized understanding of dc instruction. iv removed, tip intact. pt has all belongings. pt left with ex
--- NOTE | 2016-12-07 19:12 | DS ---
DATE OF DISCHARGE: 12/07/2016 DISCHARGE DIAGNOSES: 1. Nonspecific colitis, resolving - C. diff negative. 2. Hyperkalemia, resolved. 3. Vomiting depletion, resolved. 4. Moderate protein malnutrition related to illness. 5. Leukocytosis, which has resolved. 6. Normochromic normocytic anemia, questionable as the duration. 7. Type 2 diabetes. 8. Leukocytosis secondary to steroid given. HOSPITAL COURSE: This is a 56-year-old retired gentleman who presents to the Emergency Room with lower abdominal pain. He had been treated as an outpatient for a week with Cipro and Flagyl, but he continued to have pain and copious amounts of diarrhea. His C. diff was negative and his stool for hemoccult was also negative. He was found to have normochromic normocytic anemia. It is unknown whether this is of long duration or recent. The CAT scan was read out as nonspecific low-grade colitis. He did not have diverticulitis on the CAT scan and also had some evidence of possible esophagitis. He was treated with Protonix IV, Zosyn, and pain medication. He was seen in consultation by Dr. Franklin who recommend in 4 weeks getting an EGD and a colonoscopy. He is feeling much better on the day of discharge. OBJECTIVE: VITAL SIGNS: Blood pressure 146/72, pulse 75, respirations 20, temperature 98.3, pulse ox 95% on room air. GENERAL: Color is better. He looks well hydrated. HEENT: His tongue was moist. NECK: Supple. LUNGS: Clear. CARDIOVASCULAR: Regular rhythm and rate. ABDOMEN: Soft, nontender. Bowel sounds are active. EXTREMITIES: Without edema. LABORATORY DATA: Reviewed. His stool cultures are pending, slightly elevated white count of 14.0 from the Solu-Medrol he got, hemoglobin 10.3, hematocrit 29.9 seems to be maybe his normal and stool Hemoccult was negative and C. diff toxin was negative. PLAN: He will be discharged today. We had extensive typewritten discharge instructions were given, will go home on 6 weeks of Carafate and Protonix. We will also have 7 days of Augmentin. I advised to start to go on a probiotic after finishing the Augmentin. We will follow up with his [place] doctor in [place]. If he stays in [place] and knows that he needs a colonoscopy and EGD in 4 weeks. I advised also on his anemia and that will need to be worked up as an outpatient. For medication see MRASeema. RAINER GALLAGHER DO DR: TEENA/becky JOB#: [id number] / [id number]
== END 2016-12-07 15:18 | disposition home or self-care (01) | DRG 392 ==
LOC: ER 18:18 → 1 SOUTH 21:34
PROVIDERS: ADMIT Internal Medicine; ATTEND Internal Medicine
DX: K52.9 Noninfective gastroenteritis and colitis, unspecified (principal); E44.0 Moderate protein-calorie malnutrition; E87.5 Hyperkalemia; E11.9 Type 2 diabetes mellitus without complications; E78.00 Pure hypercholesterolemia, unspecified; E78.5 Hyperlipidemia, unspecified; I10 Essential (primary) hypertension; E83.42 Hypomagnesemia; D64.9 Anemia, unspecified; T38.0X5A Adverse effect of glucocorticoids and synthetic analogues, initial encounter; K20.9 Esophagitis, unspecified; E86.0 Dehydration; F32.9 Major depressive disorder, single episode, unspecified; K57.90 Diverticulosis of intestine, part unspecified, without perforation or abscess without bleeding; Z68.30 Body mass index [BMI] 30.0-30.9, adult; Z88.8 Allergy status to other drugs, medicaments and biological substances; Z79.899 Other long term (current) drug therapy; Z79.2 Long term (current) use of antibiotics
CPT/HCPCS: 36415; 74177; 80048; 80053; 82274; 82947; 83605; 83690; 83735; 84132; 85007; 85027; 85651; 87045; 87324; 93005; 96361; 96374; 96376; C9113; J0610; J1815; J2270; J2405; J2543; J2930; J3475; J7030; Q9967; 99285-25

== ENCOUNTER → 2019-01-21 | Outpatient (CLI) | payer OTHER ==
[~2019-01-21] MED LIST changes: +AMOX1TAB61 PO; +HYDR-2155 PO; +IOHEXOL 240 MG/ML 50ML VIAL. PO ONE; +IOHEXOL 300 MG/ML 75 ML VIAL. IV ONE; +MELO7.5T29 PO; +PANT40TA3 PO; +SUCR1ORA5 PO
--- NOTE | 2019-01-21 11:58 | RAD ---
EXAM: Chest, 2 views. HISTORY: Abnormal lab values. COMPARISON: None. FINDINGS: 2 views of the chest are obtained. There is no fracture, dislocation or subluxation. The heart is normal in size. IMPRESSION: No acute pulmonary finding. Electronically signed by: Rin Vargas MD (01/21/2019 11:55 AM) [facility]
--- NOTE | 2019-01-21 13:59 | RAD ---
Exam performed: CT scan of the abdomen and pelvis with contrast Clinical Indication: Diarrhea since August, due to old nodules seen on the endoscopy Date of Service: 01/21/2019. COMPARISON: Abdominal ultrasound from 09/15/2010 Technique: Contiguous helical acquisitions are obtained from the lung bases to the pelvis during intravenous administration of [75 mL of Omnipaque 240]. In addition oral contrast was also given. Sagittal and coronal reformatted images were obtained and reviewed. CT abdomen findings: The lung bases appear essentially clear. Visualized heart is normal. The liver, spleen ,gall bladder and pancreas appears unremarkable. Both adrenal glands and bilateral kidneys appear normal with symmetric excretion of contrast via both kidneys. Small right inferior renal pole cyst. The small bowel loops appear nondilated and unremarkable. Aorta is normal in caliber. There is no retroperitoneal lymphadenopathy or mass lesions. No bowel related inflammatory stranding is noted. Sigmoid diverticulosis without acute diverticulitis. The urinary bladder is well distended and normal . Compression fracture involving L2 vertebral body with mild sclerosis. Sagittal and coronal reformatted images were obtained and reviewed which demonstrate no additional findings. Impression abdomen and pelvis : 1. No acute intra-abdominal or pelvic process is detected. 2. Right inferior renal pole cyst. 3. Loss of height of L2 vertebral body suggesting Compression fracture of unknown acuity . Correlate with focal pain and if indicated evaluation with MRI lumbar spine may be obtained. PQRS Compliance Statement: One or more of the following individualized dose reduction techniques were utilized for this examination: 1. Automated exposure control 2. Adjustment of the mA and/or kV according to patient size 3. Use of iterative reconstruction technique Electronically signed by: Allyssa Bhagat MD (01/21/2019 1:56 PM) [facility]
== END | disposition home or self-care (01) ==
LOC: CT 11:20
PROVIDERS: ATTEND Internal Medicine Gastroenterology
DX: N28.1 Cyst of kidney, acquired (principal); K57.30 Diverticulosis of large intestine without perforation or abscess without bleeding; M48.56XA Collapsed vertebra, not elsewhere classified, lumbar region, initial encounter for fracture; R79.9 Abnormal finding of blood chemistry, unspecified
CPT/HCPCS: 71046; 74177; Q9966; Q9967

== ENCOUNTER 2021-06-07 19:14 | Emergency (ER) | payer OTHER ==
[~2021-06-07] VITALS: Ht 175.3 cm; Wt 81.8 kg
[~2021-06-07 19:14] MED LIST changes: -IOHEXOL 240 MG/ML 50ML VIAL. PO ONE; -IOHEXOL 300 MG/ML 75 ML VIAL. IV ONE; -LISI-334 PO; +LISI20TA18 PO; +SERT-268 PO; -SERT50TA8 PO
[2021-06-07] MEDS ORDERED: IV NORMAL SALINE 1,000ML 1,000 ML IV ONE (20:30)
[2021-06-07] MEDS ORDERED: ONDANSETRON PF 4 MG/2 ML VIAL. IVP ONE (20:30)
[2021-06-07 21:00] LABS: BASO % 0 % (0-3); EOS % 0 % (0-3); HEMATOCRIT 41.5 % (39.0-53.0); HEMOGLOBIN 14.2 g/dL (13.0-17.5); LYMPH # 1.7 x10^3/uL (1.0-4.8); LYMPH % 15 % (24-48); MEAN CORPUSCULAR HEMOGLOBIN 30 pg (25-35); MEAN CORPUSCULAR HGB CONC 34 g/dL (31-37); MEAN CORPUSCULAR VOLUME 87 fL (79-100); MONO # 0.6 x10^3/uL (0.0-1.1); MONO % 5 % (0-9); NEUT # 8.5 x10^3uL (1.8-7.7); NEUT % 79 % (31-73); PLATELET COUNT 253 x10^3/uL (140-400); RED BLOOD COUNT 4.78 x10^6/uL (4.30-5.70); RED CELL DISTRIBUTION WIDTH 13.5 % (11.5-14.5); WHITE BLOOD COUNT 10.9 x10^3/uL (4.0-11.0)
--- NOTE | 2021-06-07 21:07 | RAD ---
EXAM: CT HEAD WITHOUT IV CONTRAST CLINICAL HISTORY: Reason: suspected seizure / Spl. Instructions: / History: COMPARISON: None. TECHNIQUE: Routine CT of the head without contrast. Soft tissues and bone windows were reviewed. PQRS compliance statement - One or more of the following individualized dose reduction techniques wer e utilized for this study: 1. Automated exposure control 2. Adjustment of the mA and/or kV according to patient size 3. Use of iterative reconstruction technique FINDINGS: There is no evidence of hemorrhage, mass or extra-axial fluid collection. Valdes-white differentiation is maintained with no evidence of edema. There is no mass effect or shift of the intracranial structures. The ventricles, basilar cisterns and cortical sulci are normal in size and configuration for the kevin ents stated age. The cerebellum and brainstem are unremarkable. The calvarium demonstrates no evidence of fracture or focal lesion. There is normal aeration of the visualized paranasal sinuses and mastoid air cells. The visualized portions of the orbits are normal. Atherosclerotic calcifications of the intracranial internal carotid and vertebral arteries is seen. IMPRESSION: No evidence for acute intracranial process. EXAM: CT CERVICAL SPINE WITHOUT IV CONTRAST CLINICAL HISTORY: Reason: suspected seizure / Spl. Instructions: / History: COMPARISON: None available. TECHNIQUE: Helical CT of the cervical spine was performed. Axial, coronal and sagittal reformatted im ages were also performed. PQRS compliance statement - One or more of the following individualized dose reduction techniques wer e utilized for this study: 1. Automated exposure control 2. Adjustment of the mA and/or kV according to patient size 3. Use of iterative reconstruction technique FINDINGS: Vertebral body heights are preserved. No acute fracture. Straightening of the normal cervical lordosis. No spondylolisthesis. Intervertebral disc heights are preserved. Multilevel facet degenerative changes, greatest at the rig ht C3-4, C4-5 and C5-6. IMPRESSION: 1. Multilevel spondylosis as above 2. Negative acute fracture or subluxation. Electronically signed by: Oskar Nunez MD (06/07/2021 9:05 PM) [facility]
[2021-06-07 21:11] LABS: CALCIUM 8.9 mg/dL (8.5-10.1); CREATININE 1.5 mg/dL (0.7-1.3); GFR 47.4
[2021-06-07] MEDS ORDERED: traMADol 50 MG TABLET PO ONE ×2 (21:15→22:00)
[2021-06-07 21:17] LABS: ALBUMIN 3.8 g/dL (3.4-5.0); MAGNESIUM 2.3 mg/dL (1.8-2.4); TOTAL BILIRUBIN 0.6 mg/dL (0.2-1.0); TOTAL PROTEIN 7.6 g/dL (6.4-8.2)
--- NOTE | 2021-06-07 21:17 | PHYS DOC ---
Past History Past Medical History: Depression, Diverticulitis, Diabetes, High Cholesterol, Hypertension Additional Past Medical Histor: Insomnia (ANGELIC MCCLOUD) Past Surgical History: Other Additional Past Surgical Histo: left foot surgery (ANGELIC MCCLOUD) Smoking: Non-smoker Alcohol Use: None Drug Use: None (ANGELIC MCCLOUD) General Adult EDM: Chief Complaint: DIZZY/LIGHT HEADED HPI: HPI: Patient is a 60 year old male with history of severe anxiety and PTSD who presents with witnessed seizure-like activity. Patient son is at bedside and describes the episode as follows: The patient "slumped" in his chair and appeared to have lost consciousness, both of his arms then tensed and contracted. After some time, longer than 30 seconds but less than a minute, they seem to relax. This process continued in waves for approximately 5 minutes. Patient was disoriented for 20 minutes following the episode. He reports associated nausea. Patient denies history of epilepsy. He states that he has had 34 episodes similar each week for several weeks. Patient denies fever, chills, chest pain, palpitations, shortness of breath, cough, vomiting, diarrhea. In addition to his anxiety and PTSD, patient's past medical history includes chronic pain of his cervical spine, thoracic spine, lumbar spine, tension headaches. (ANGELIC MCCLOUD) Review of Systems: Review of Systems: Constitutional: See HPI Eyes: Denies change in visual acuity or visual field deficits HENT: Denies nasal congestion or sore throat Respiratory: Denies cough or shortness of breath Cardiovascular: Denies chest pain or edema GI: See HPI : Denies dysuria or hematuria Musculoskeletal: Denies new onset back pain or joint pain Integument: Denies rash or other skin lesions Neurologic: See HPI Endocrine: Denies polyuria or polydipsia Psychiatric: See HPI (ANGELIC MCCLOUD) Current Medications: Current Meds: Current Medications Medications (Trade) Dose Ordered Sig/Cam Start Time Stop Time Status Last Admin Dose Admin Ondansetron HCl (Zofran) 8 mg 1X ONCE 06/07/21 20:30 06/07/21 20:50 DC 06/07/21 21:01 8 MG Sodium Chloride 1,000 ml @ 1,000 mls/hr 1X ONCE 06/07/21 20:30 06/07/21 21:29 06/07/21 20:30 1,000 MLS/HR (ANGELIC MCCLOUD) Allergies: Allergies: Allergies Coded Allergies Type Severity Reaction Last Updated Verified prochlorperazine edisylate Allergy Unknown Swelling 06/07/21 Yes prochlorperazine maleate Allergy Unknown Swelling 06/07/21 Yes (ANGELIC MCCLOUD) Physical Exam: PE: Constitutional: Well developed, well nourished, no acute distress, non-toxic appearance. HENT: Normocephalic, atraumatic, bilateral external ears normal, oropharynx moist, no oral exudates, nose without obvious deformity or discharge. Eyes: PERRLA, EOMI, conjunctiva normal, no discharge. Neck: Active range of motion intact, no step-offs, no midline tenderness, supple. Cardiovascular: Heart rate regular rhythm, no murmur. Lungs & Thorax: Bilateral breath sounds clear to auscultation. Abdomen: Bowel sounds normal, soft, no tenderness, no masses, no pulsatile masses. Skin: Warm, dry, no erythema, no rash. Neurologic: Alert and oriented x4, motor function intact in extremities x4, symmetrical gait, sensory function grossly intact, no focal deficits noted. Psychologic: Affect anxious, fair judgment, mood "I get anxious all the time a bout my pain." (ANGELIC MCCLOUD) Current Patient Data: Labs: Laboratory Tests Test 06/07/21 20:38 White Blood Count 10.9 x10^3/uL (4.0-11.0) Red Blood Count 4.78 x10^6/uL (4.30-5.70) Hemoglobin 14.2 g/dL (13.0-17.5) Hematocrit 41.5 % (39.0-53.0) Mean Corpuscular Volume 87 fL (79-100) Mean Corpuscular Hemoglobin 30 pg (25-35) Mean Corpuscular Hemoglobin Concent 34 g/dL (31-37) Red Cell Distribution Width 13.5 % (11.5-14.5) Platelet Count 253 x10^3/uL (140-400) Neutrophils (%) (Auto) 79 % (31-73) H Lymphocytes (%) (Auto) 15 % (24-48) L Monocytes (%) (Auto) 5 % (0-9) Eosinophils (%) (Auto) 0 % (0-3) Basophils (%) (Auto) 0 % (0-3) Neutrophils # (Auto) 8.5 x10^3uL (1.8-7.7) H Lymphocytes # (Auto) 1.7 x10^3/uL (1.0-4.8) Monocytes # (Auto) 0.6 x10^3/uL (0.0-1.1) Eosinophils # (Auto) 0.0 x10^3/uL (0.0-0.7) Basophils # (Auto) 0.0 x10^3/uL (0.0-0.2) Vital Signs: Vital Signs Date Time Temp Pulse Resp B/P (MAP) Pulse Ox O2 Delivery O2 Flow Rate FiO2 06/07/21 19:34 97.6 69 20 104/50 (68) 99 Room Air (ANGELIC MCCLOUD) EKG: EKG: EKG Interpreted by Dr. Guzman at 1958: Regular rate and rhythm 59 bpm with no ectopic beats. QT 430 ms/QTc [address]-T wave changes. (ANGELIC MCCLOUD) Radiology/Procedures: Radiology/Procedures: PROCEDURE: CT HEAD AND CERVICAL SPINE WO EXAM: CT HEAD WITHOUT IV CONTRAST CLINICAL HISTORY: Reason: suspected seizure / Spl. Instructions: / History: COMPARISON: None. TECHNIQUE: Routine CT of the head without contrast. Soft tissues and bone windows were reviewed. PQRS compliance statement - One or more of the following individualized dose reduction techniques were utilized for this study: 1. Automated exposure control 2. Adjustment of the mA and/or kV according to patient size 3. Use of iterative reconstruction technique FINDINGS: There is no evidence of hemorrhage, mass or extra-axial fluid collection. Valdes-white differentiation is maintained with no evidence of edema. There is no mass effect or shift of the intracranial structures. The ventricles, basilar cisterns and cortical sulci are normal in size and configuration for the patients stated age. The cerebellum and brainstem are unremarkable. The calvarium demonstrates no evidence of fracture or focal lesion. There is normal aeration of the visualized paranasal sinuses and mastoid air cells. The visualized portions of the orbits are normal. Atherosclerotic calcifications of the intracranial internal carotid and vertebral arteries is seen. IMPRESSION: No evidence for acute intracranial process. EXAM: CT CERVICAL SPINE WITHOUT IV CONTRAST CLINICAL HISTORY: Reason: suspected seizure / Spl. Instructions: / History: COMPARISON: None available. TECHNIQUE: Helical CT of the cervical spine was performed. Axial, coronal and sagittal reformatted images were also performed. PQRS compliance statement - One or more of the following individualized dose reduction techniques were utilized for this study: 1. Automated exposure control 2. Adjustment of the mA and/or kV according to patient size 3. Use of iterative reconstruction technique FINDINGS: Vertebral body heights are preserved. No acute fracture. Straightening of the normal cervical lordosis. No spondylolisthesis. Intervertebral disc heights are preserved. Multilevel facet degenerative moscoso es, greatest at the right C3-4, C4-5 and C5-6. IMPRESSION: 1. Multilevel spondylosis as above 2. Negative acute fracture or subluxation. Electronically signed by: Oskar Nunez MD (06/07/2021 9:05 PM) [facility] (ANGELIC MCCLOUD) Heart Score: C/O Chest Pain: No (ANGELIC MCCLOUD) Course & Med Decision Making: Course & Med Decision Making Pertinent Labs and Imaging studies reviewed. (See chart for details) Patient's history and presentation concerning for seizures versus conversion disorder. Work-up today is largely reassuring. Spoke with Dr. Howell on neurology service, who agrees to consult upon admission. Patient will be admitted to Dr. House and consulted by neuro tomorrow. (ANGELIC MCCLOUD) Course & Med Decision Making Did not see or evaluate patient. Did not discuss patient with DIGITAL CARTOGRAPHER. Agree with DIGITAL CARTOGRAPHER's work-up and disposition per note. (AMNA GUZMAN MD) Dragon Disclaimer: Dragon Disclaimer: This electronic medical record was generated, in whole or in part, using a voice recognition dictation system. (ANGELIC MCCLOUD) Departure Departure: Impression: Primary Impression: Witnessed seizure-like activity Additional Impressions: Severe anxiety PTSD (post-traumatic stress disorder) Chronic pain of multiple sites Disposition: ADMITTED INPATIENT Admitting Physician: Ashvin House (ANGELIC MCCLOUD) Condition: GUARDED Referrals: SOHAIL SANTIAGO (PCP) ANGELIC MCCLOUD Jun 07, 2021 21:17 AMNA GUZMAN MD Jun 07, 2021 22:05
[2021-06-07 21:38] LABS: BILIRUBIN,URINE NEG (NEG); CLARITY,URINE CLEAR; COLOR,URINE YELLOW; GLUCOSE,URINE >=1000 mg/dL (NEG); NITRITE,URINE NEG (NEG); UROBILINOGEN,URINE 0.2 mg/dL (0.2 mg/dL)
[2021-06-07 21:39] LABS: BACTERIA,URINE 0 /HPF (0-FEW); RBC,URINE 0 /HPF (0-2); SQUAMOUS EPITHELIAL CELL,UR OCC /LPF
[2021-06-07 21:40] LABS: BARBITURATES NEG (NEG); BENZODIAZEPINES NEG (NEG); CANNABINOIDS POS (NEG); COCAINE NEG (NEG); METHADONE NEG (NEG); OPIATES NEG (NEG); PHENCYCLIDINE NEG (NEG)
[2021-06-07 21:51] LABS: AMPHETAMINE/METHAMPHETAMINE NEG (NEG)
[2021-06-07] MEDS ORDERED: ONDANSETRON PF 4 MG/2 ML VIAL. IVP PRN (22:00)
[2021-06-08] MEDS ORDERED: PANTOPRAZOLE IV 40 MG VIAL. ONE (03:25)
[2021-06-08] MEDS ORDERED: LIDO:MAALOX 1:1 20 ML SINGLE DOSE. ONE (03:25)
[2021-06-08] MEDS ORDERED: PANTOPRAZOLE IV 40 MG VIAL. IVP ONE (03:30)
[2021-06-08] MEDS ORDERED: LIDO:MAALOX 1:1 20 ML SINGLE DOSE. PO ONE (03:30)
--- NOTE | 2021-06-08 08:24 | EKG ---
[address] [address] Test Date: 2021-06-07 Test Time: 19:58:43 Pat Name: LIANNA SANCHEZ Department: Room: Gender: M Ship Keeper: DONNA : 1960 Requested By: ANGELIC MCCLOUD Order Number: [id number] Reading MD: Dave Viramontes Measurements Intervals [place] Rate: 59 P: 52 MN: 174 QRS: 15 QRSD: 82 T: 52 QT: 430 QTc: 430 Interpretive Statements SINUS RHYTHM MILD NON SPECIFIC ST CHANGES Electronically Signed On 06-11-2021 16:43:14 BUSINESS OPERATIONS CONSULTANT by Dave Viramontes
[2021-06-08] MEDS ORDERED: INSULIN LISPRO 300 UNITS/3 ML VIAL. SQ SCH (12:00)
--- NOTE | 2021-06-08 13:00 | HP ---
DATE OF SERVICE: 06/08/2021 ADMIT DATE: 06/07/2021 ATTENDING PHYSICIAN: Dr. Ashvin House. CHIEF COMPLAINT: Questionable seizure. HISTORY OF PRESENT ILLNESS: The patient is a 60-year-old gentleman. He was at his son's house. He appeared to have seizure activity. He was slumped over in a chair, appeared to lose consciousness, both of his arms and hands, contracted. After some time, about a minute, he regained his consciousness. He was sent to the ER for further evaluation. The question, he had a seizure. He has these episodes frequently. He has a longstanding history of depression, anxiety and panic attacks. In the ED, the workup was fairly unremarkable. The CT of the head did not show any acute pathology, strokes or bleeds. He was admitted overnight to the hospital for neurology consultation. PAST MEDICAL HISTORY: Significant for anxiety, posttraumatic stress disorder, chronic pain syndrome with both lumbar and cervical spine, depression, diverticulitis, type 2 diabetes, hyperlipidemia, and essential hypertension. ALLERGIES: HE HAS ALLERGIES TO PROCHLORPERAZINE. CURRENT MEDICATIONS: Include glipizide, insulin, lisinopril, Protonix, Zocor, Zoloft, Januvia and Carafate. SOCIAL HISTORY: He is a nonsmoker, nondrinker. FAMILY HISTORY: Noncontributory. REVIEW OF SYSTEMS: Significant for lots of stress. He is scheduled to see a chiropractor for his chronic low back pain. Dr. Mayorga had him on some Ultram at one time, but he is having a hard time getting refills, whether or not he abuses narcotics remains to be seen. PHYSICAL EXAMINATION: GENERAL: When I saw him, this is a pleasant, middle-aged gentleman. VITAL SIGNS: Initial vital signs showed a blood pressure of 144/67, pulse is regular. He was afebrile, oxygen saturation 97% on room air. HEENT: Head is without trauma. Pupils are reactive. Sclerae nonicteric. Oropharynx clear. NECK: Supple, no bruits identified. LUNGS: Clear to auscultation. CARDIOVASCULAR: Regular heart tones. ABDOMEN: Soft. EXTREMITIES: Without edema. NEUROLOGIC: Function focally intact. Speech is fluent. PERTINENT LABORATORY STUDIES: His urine screen was positive for cannabinoids and tetrahydrocannabinol. Serology negative for coronavirus. Chemistry panel within normal range. Creatinine 1.5 mg%. Hemoglobin maintained at 14.2 grams, white count of 10,900. Cervical spine and head CT showed no significant pathology. No evidence for acute intracranial process. COURSE IN THE HOSPITAL: The patient was admitted to my service overnight. There were no beds available and the next morning, I came down to the ED to see him, he was stable. I reviewed his medication history, CT report. I spoke with Dr. Howell, who was not able to see him today. He is happy to see him as an outpatient tomorrow for potential EEG. We gave him the number for Dr. Howell's office. I spoke with him. I felt that he needs antianxiety medicine for his panic attack. I felt it was reasonable for him to go home. BK/TERENCE MADRID: Elma TID: [id number] CC: John Mayorga
[2021-06-08 13:25] VITALS: BP 142/69
--- NOTE | 2021-06-08 19:43 | DS ---
DATE OF DISCHARGE: 06/08/2021 FINAL DISCHARGE DIAGNOSES: 1. Questionable seizure activity. Active seizure ruled out. 2. Aberrant presentation of panic attack. 3. Underlying depression with anxiety. 4. Type 2 diabetes. 5. Hypertension. 6. Generalized anxiety disorder. 7. Posttraumatic stress disorder. HISTORY AND PHYSICAL: The patient is a 60-year-old gentleman admitted through the ED for observation. I saw him the next morning, he had spent the night in the ED because of lack of beds. He had questionable seizure activity. He was scheduled to see Dr. Howell. PHYSICAL EXAMINATION: Please see the dictated note. PERTINENT LABORATORY AND X-RAY STUDIES: CBC, chemistry panel all unremarkable. Coronavirus screen negative. Urine drug screen positive for tetrahydrocannabinol. IMPRESSION AND PLAN: The patient did not need any seizure medication. It was not a seizure that he described is unlikely. I think he had a panic attack. I explained this in detail to him. At this time, I strongly suggested that he get a prescription for benzodiazepine, either Xanax or Klonopin from his PCP. His other home meds are unchanged. He was ready for discharge. I did not write for any new medication. He will continue his scheduled glipizide, insulin, lisinopril, Protonix, Zocor, Zoloft, Januvia and Carafate doses unchanged. In addition, we recommended a followup with Neurology, Dr. Howell, said he would see him in the office on Monday for potential EEG. Whether or not he will show up remains to be seen. In any event, the patient was then discharged from our hospital in stable condition with explicit drug and followup care. BK/ISABEL DR: Elma TID: [id number] CC: John Mayorga MD
== END 2021-06-08 13:30 | disposition admitted as inpatient to this hospital (09) ==
LOC: ER 19:14
DX: R56.9 Unspecified convulsions (principal); F41.9 Anxiety disorder, unspecified; F43.10 Post-traumatic stress disorder, unspecified; G89.29 Other chronic pain; F32.9 Major depressive disorder, single episode, unspecified; E11.9 Type 2 diabetes mellitus without complications; E78.00 Pure hypercholesterolemia, unspecified; I10 Essential (primary) hypertension; Z20.822 Contact with and (suspected) exposure to COVID-19; Z88.8 Allergy status to other drugs, medicaments and biological substances
CPT/HCPCS: 36415; 70450; 72125; 80053; 80307; 81001; 83735; 84484; 85025; 87426; 93005; 96361; 96372; 96374; 96375; 99285; C9113; C9803; J1815; J2060; J2405; J7030; U0003; 99282

== ENCOUNTER → 2021-07-29 | Day surgery (SDC) | payer OTHER ==
[~2021-07-29] MED LIST changes: +0.9 % SODIUM CHLORIDE 10 ML VIAL. ONE; +DEXAMETHASONE SOD PHOS 10 MG/ML VIAL. ONE; +IOHEXOL 300 MG/ML 50 ML VIAL. ONE; +LIDOCAINE 1% PF 30 ML VIAL. ONE
[2021-07-29 15:06] VITALS: BP 166/72
== END | disposition home or self-care (01) ==
LOC: SURG 13:47
PROVIDERS: ATTEND Anesthesiology
DX: M54.16 Radiculopathy, lumbar region (principal); J45.909 Unspecified asthma, uncomplicated; I10 Essential (primary) hypertension; E11.9 Type 2 diabetes mellitus without complications; F32.9 Major depressive disorder, single episode, unspecified; M47.12 Other spondylosis with myelopathy, cervical region; G89.29 Other chronic pain; Z79.4 Long term (current) use of insulin; Z79.899 Other long term (current) drug therapy; Z88.8 Allergy status to other drugs, medicaments and biological substances; Z87.891 Personal history of nicotine dependence
CPT/HCPCS: 62323; A4209; A4657; A4930; J1100; Q9967

== ENCOUNTER → 2021-08-25 | Day surgery (SDC) | payer OTHER ==
[2021-08-25 14:20] VITALS: BP 145/82
== END | disposition home or self-care (01) ==
LOC: SURG 14:12
PROVIDERS: ATTEND Anesthesiology
DX: M54.12 Radiculopathy, cervical region (principal); I10 Essential (primary) hypertension; E11.9 Type 2 diabetes mellitus without complications; J45.909 Unspecified asthma, uncomplicated; F32.9 Major depressive disorder, single episode, unspecified; E78.5 Hyperlipidemia, unspecified; F41.9 Anxiety disorder, unspecified; M47.817 Spondylosis without myelopathy or radiculopathy, lumbosacral region; Z98.890 Other specified postprocedural states; Z79.4 Long term (current) use of insulin; Z79.899 Other long term (current) drug therapy; Z87.891 Personal history of nicotine dependence
CPT/HCPCS: 62321; A4209; A4657; A4930; J1100; Q9967

== ENCOUNTER → 2021-11-10 | Day surgery (SDC) | payer OTHER ==
[~2021-11-10] MED LIST changes: -IOHEXOL 300 MG/ML 50 ML VIAL. ONE
[2021-11-10 15:00] VITALS: BP 154/69
== END | disposition home or self-care (01) ==
LOC: SURG 14:10
PROVIDERS: ATTEND Anesthesiology
DX: M54.16 Radiculopathy, lumbar region (principal); J45.909 Unspecified asthma, uncomplicated; I10 Essential (primary) hypertension; E11.9 Type 2 diabetes mellitus without complications; F32.9 Major depressive disorder, single episode, unspecified; M54.81 Occipital neuralgia; E78.5 Hyperlipidemia, unspecified; Z79.4 Long term (current) use of insulin; F41.9 Anxiety disorder, unspecified; Z79.899 Other long term (current) drug therapy; Z98.890 Other specified postprocedural states; Z88.8 Allergy status to other drugs, medicaments and biological substances
CPT/HCPCS: 62323; A4209; A4657; A4930; J1100